=== PATIENT | female | born 1990 | race Asian ===

== ENCOUNTER → 2024-07-11 | Outpatient (CLI) | payer BC ==
[2024-07-11 08:31] LABS: BASOPHILS % 0.9 % (0.0-2.0); EOSINOPHILS % 3.9 % (0.0-5.0); HEMATOCRIT. 38.6 % (36.0-48.0); HEMOGLOBIN. 13.4 g/dL (12.0-16.0); LYMPHOCYTES % 39.1 % (20.0-50.0); MEAN CORPUSCULAR HEMOGLOBIN 29.1 pg (28.0-32.0); MEAN CORPUSCULAR HGB CONC 34.7 g/dL (31.0-37.0); MEAN CORPUSCULAR VOLUME 83.9 fL (81.0-99.0); MEAN PLATELET VOLUME 7.2 fl (7.4-10.4); MONOCYTES % 5.4 % (2.0-8.0); NEUTROPHILS % 50.7 % (40.0-76.0); PLATELET 265 x1000/uL (130-400); RED BLOOD CELL COUNT 4.61 mill/uL (4.2-5.4); RED CELL DISTRIBUTION WIDTH 12.9 % (11.6-14.6); WHITE BLOOD COUNT 5.5 x1000/uL (4.5-11.0)
[2024-07-11 08:41] LABS: CHLORIDE 102 mEq/L (98-107); POTASSIUM 3.8 mEq/L (3.5-5.1); SODIUM 139 mEq/L (136-145)
[2024-07-11 08:43] LABS: CARBON DIOXIDE 29 mEq/L (21-32)
[2024-07-11 08:44] LABS: CALCIUM 9.7 mg/dL (8.7-10.4)
[2024-07-11 08:47] LABS: UREA NITROGEN BLOOD 10 mg/dL (9-23)
[2024-07-11 08:48] LABS: URIC ACID 4.6 mg/dL (3.1-7.8)
[2024-07-11 08:49] LABS: ALANINE AMINOTRANSFERASE 11 IU/L (10-49); CREATININE 0.7 mg/dL (0.6-1.0); GLUCOSE 102 mg/dL (70-105); T4 FREE 1.43 ng/dL (0.89-1.76); THYROID STIMULATING HORMONE 3.22 uIU/mL (0.55-4.78); TRIGLYCERIDE 64 mg/dL (0-150)
[2024-07-11 08:50] LABS: LDL CHOLESTEROL 131 mg/dL (5-100)
[2024-07-11 08:51] LABS: ALBUMIN 4.5 g/dL (3.2-4.8); ASPARTATE AMINOTRANSFERASE 16 IU/L (<34); BILIRUBIN TOTAL 0.5 mg/dL (0.1-1.0); CHOLESTEROL 190 mg/dL (<200); HDL CHOLESTEROL 47 mg/dL (>65); PROTEIN TOTAL 8.4 g/dL (6.0-8.3)
== END | disposition home or self-care (01) ==
LOC: EDBD 07:37 → LAB 07:37
PROVIDERS: ATTEND Internal Medicine Endocrinology, Diabetes & Metabolism
DX: E04.9 Nontoxic goiter, unspecified (principal); D64.9 Anemia, unspecified; R73.9 Hyperglycemia, unspecified
CPT/HCPCS: 36415; 80053; 80061; 83036; 84439; 84443; 84550; 85025

== ENCOUNTER → 2024-10-04 | Outpatient (CLI) | payer BC ==
[2024-10-06 15:11] LABS: IMMUNOGLOBULIN A 298 mg/dL (87-352); IMMUNOGLOBULIN G 1854 mg/dL (586-1602); IMMUNOGLOBULIN M 191 mg/dL (26-217)
== END | disposition home or self-care (01) ==
LOC: LAB 14:35
PROVIDERS: ATTEND Internal Medicine Endocrinology, Diabetes & Metabolism
DX: E78.00 Pure hypercholesterolemia, unspecified (principal); Z13.9 Encounter for screening, unspecified
CPT/HCPCS: 36415; 80061; 82784; 83695; 84155; 84165; 86334

== ENCOUNTER → 2025-02-24 | Outpatient (CLI) | payer BC ==
[2025-02-24 10:36] LABS: BASOPHILS % 0.7 % (0.0-2.0); EOSINOPHILS % 3.2 % (0.0-5.0); HEMATOCRIT. 38.5 % (36.0-48.0); HEMOGLOBIN. 12.8 g/dL (12.0-16.0); LYMPHOCYTES % 39.4 % (20.0-50.0); MEAN PLATELET VOLUME 7.4 fl (7.4-10.4); MONOCYTES % 6.0 % (2.0-8.0); NEUTROPHILS % 50.7 % (40.0-76.0); PLATELET 302 x1000/uL (130-400); RED BLOOD CELL COUNT 4.69 mill/uL (4.2-5.4); RED CELL DISTRIBUTION WIDTH 13.4 % (11.6-14.6)
[2025-02-24 10:51] LABS: CREATININE 0.6 mg/dL (0.6-1.0)
[2025-02-24 10:52] LABS: LDL CHOLESTEROL 116 mg/dL (5-100); TRIGLYCERIDE 75 mg/dL (0-150); UREA NITROGEN BLOOD 10 mg/dL (9-23)
[2025-02-24 10:53] LABS: ASPARTATE AMINOTRANSFERASE 23 IU/L (<34)
[2025-02-24 10:54] LABS: BILIRUBIN TOTAL 0.8 mg/dL (0.1-1.0); PROTEIN TOTAL 8.1 g/dL (6.0-8.3)
[2025-02-24 10:57] LABS: T4 FREE 1.60 ng/dL (0.89-1.76)
== END | disposition home or self-care (01) ==
LOC: LAB 09:43
PROVIDERS: ATTEND Internal Medicine Endocrinology, Diabetes & Metabolism
DX: E04.1 Nontoxic single thyroid nodule (principal); E78.5 Hyperlipidemia, unspecified
CPT/HCPCS: 36415; 76536; 80053; 80061; 82784; 84439; 84443; 85025